=== PATIENT | female | born 1990 | race Two or more races ===

== ENCOUNTER → 2023-01-13 | Day surgery (SDC) | payer OTHER | END | disposition home or self-care (01) | LOC: ADM 01-11 13:45 → AMB-ENDOS 06:00 | PROVIDERS: ATTEND Surgery | DX: R10.13 Epigastric pain (principal); E66.09 Other obesity due to excess calories; K44.9 Diaphragmatic hernia without obstruction or gangrene; Z20.822 Contact with and (suspected) exposure to COVID-19 ==